=== PATIENT | male | born 1980 | race Caucasian/White ===

== ENCOUNTER 2016-05-30 21:18 | Emergency (ER) | payer SELFPAY ==
[~2016-05-30] VITALS: Ht 177.8 cm; Wt 73.0 kg
[2016-05-30 21:21] VITALS: BP 133/73; PULSE 75; RESP 15; TEMP 98; O2SAT 98
--- NOTE | 2016-05-30 22:06 | PD ---
HPI Chief Complaint: Laceration/Skin Injury Time Seen by Provider: 22:02 Travel History International Travel<30 days: No Contact w/Intl Traveler<30days: No Traveled to known affect area: No History of Present Illness HPI 35-year-old white male presents to emergency department by EMS for evaluation of a left lower leg laceration which occurred sometime around 3:30 this afternoon. He states that he was using a tap grinder on a car and it skipped off hitting him in the left suazo causing a laceration. He has not had a tetanus shot over 5 years. He denies any other injuries. Pain is moderate. No palliative activity PFSH Past Medical History Medical History: Denies Significant Hx Tetanus Vaccination: > 5 Years Past Surgical History Surgical History: No Previous Surgery Social History Alcohol Use: Yes Tobacco Use: Yes Allergies-Medications (Allergen,Severity, Reaction): Coded Allergies: No Known Allergies (Unverified , 05/30/16) Review of Systems Except as stated in HPI: all other systems reviewed are Neg Physical Exam Narrative GENERAL: This is a well-nourished, well-developed patient, in no apparent distress. SKIN: No rashes, ecchymoses or lesions. Warm and dry. HEAD: Atraumatic. Normocephalic. EYES: PERRL, EOMI, no discharge or injection. No scleral icterus. EARS: Clear NOSE: Nasal turbinates appear normal. THROAT: Mucosa pink and moist. Airway patent. NECK: Trachea midline. supple, moves head freely. LUNGS: Clear to auscultation. CV: Regular in rhythm. ABDOMEN: Soft nontender. EXT: No clubbing cyanosis or edema. Patient has a 2 cm laceration to the left lower leg pretibial region proximal section anteriorly. Patient's neurovascular intact distally. No gross foreign body. Data Data Last Documented VS Vital Signs Date Time Temp Pulse Resp B/P Pulse Ox O2 Delivery O2 Flow Rate FiO2 05/30/16 21:21 98.0 75 15 133/73 98 Room Air Orders Tetanus/Diphtheria Tox Adult (Tetanus/Di (05/30/16 22:15) Lidocai-Epi 1%-1:100,000 Inj (Xylocaine- (05/30/16 22:15) Bupivacaine Pf 0.5% Inj (Marcaine Pf 0.5 (05/30/16 22:15) MDM Medical Decision Making Medical Screen Exam Complete: Yes Emergency Medical Condition: Yes Medical Record Reviewed: Yes Differential Diagnosis MDM: High Differential diagnoses: Fracture, sprain, strain, dislocation, contusion, neurovascular injury Narrative Course Patient's wound is cleansed and closed with sutures. Tetanus immunization updated. Procedures Procedure Narrative LACERATION LOCATION: Left pretibial region LENGTH: 2 cm NUMBER OF STITCHES/AL: 3 REPAIR: The area of the laceration was prepped with Betadine and sterilely draped. The laceration was infiltrated with 1% lidocaine with epinephrine and 0.5% Marcaine. The wound was copiously irrigated and explored without evidence of foreign body, tendon injury or neurovascular injury. No bony involvement. The wound was closed using 4-0 proline . This was a Simple single layer repair. A sterile dressing was applied. The patient was advised to keep the dressing clean and dry. Patient tolerated the procedure well. Diagnosis Primary Impression: Laceration of left lower leg Qualified Code: S81.812A - Laceration of left lower leg, initial encounter Patient Instructions: General Instructions Additional Instructions: Rest. Elevation. Diclofenac. Daily wound care with soap, water, Neosporin. Sutures out in 10 days. Recheck were a primary care doctor in the next 2-3 days. Return to the ER if any problems. Med/Other Pt SpecificInfo: Prescription(s) given, No Meds Exist/No RX given Scripts Diclofenac Sodium DR 50 Mg Tabdr50 Mg PO TID #21 TAB Prov:Maude Barnard MD 05/30/16 Disposition: 01 DISCHARGE HOME Condition: Stable [address] [place] May 30, 2016 22:05
[2016-05-30] MEDS ORDERED: LIDOCAINE 1%/EPINEPHrine 1:100,000 SOLN 20 ML VIAL INFIL ONE (22:15)
[2016-05-30] MEDS ORDERED: BUPIVACAINE HCL PF 0.5% 30 ML VIAL INFIL ONE (22:15)
[2016-05-30] MEDS ORDERED: TETANUS/DIPHTHERIA TOXOID ADULT 0.5 ML VIAL IM ONE (22:15)
[2016-05-30] MEDS ORDERED: DICL50TA3 PO (22:25)
== END 2016-05-30 22:57 | disposition home or self-care (01) ==
LOC: NEPB 21:18
DX: S81.812A Laceration without foreign body, left lower leg, initial encounter (principal); Z23 Encounter for immunization; Z72.0 Tobacco use; W29.8XXA Contact with other powered hand tools and household machinery, initial encounter
CPT/HCPCS: 12001; 90471; 90714